=== PATIENT | female | born 1970 | race Caucasian/White ===

== ENCOUNTER 2017-02-18 12:57 | Inpatient (IN) | payer OTHER ==
[2017-02-18 13:48] VITALS: BMI 25.4
--- NOTE | 2017-02-18 15:34 | HP ---
CIWA Score - CIWA Score Nausea/Vomitin Muscle Tremors: 3 Anxiety: 3 Agitation: 3 Paroxysmal Sweats: 2 Orientation: 0-Oriented Tacttile Disturbances: 2-Mild Itch/Numbness/Burn Auditory Disturbances: 2-Mild Harshness/Frighten Visual Disturbances: 0-None Headache: 2-Mild CIWA-Ar Total Score: 20 Admission ROS BHS - HPI Chief Complaint: I NEED HELP TO STOP DRINKING ALCOHOL AND COCAINE DEPENDENCE,SEEKING DETOX,LAST TREATMENT IN 2005 [facility] HIV SINCE 1984 ON MED BIPOLAR DISORDER AND MANIC DEPRESSION NICOTINE DEPENDENCE MMTP 30 MGS PO DAILY LAST MEDICATED TODAY Allergies/Adverse Reactions: Allergies Allergy/AdvReac Type Severity Reaction Status Date / Time No Known Allergies Allergy Verified 02/18/17 15:19 History of Present Illness: THIS 46 YEARS OLD FEMALE WITH ALCOHOL,COCAINE,MARIJUANA DEPENDENCE,SEEKING DETOX MENTIONED ABOVE WEIGHT LOSS. HEPATITIS C TREATED,IN 2016,ASTHMA,WEIGHT LOSS BIPOLAR DISORDER ,NICOTINE DEPENDENCE LONGEST PERIOD OF SOBRIETY 15 YEARS - Ebola screening Have you traveled outside of the country in the last 21 days: No Have you been sick,other than usual withdrawal symptoms: No - Review of Systems Constitutional: Loss of Appetite, Malaise, Night Sweats, Changes in sleep, Weakness, Unintentional Wgt. Loss EENT: reports: Tearing, Nose Congestion Respiratory: reports: Other (ASTHMA) Cardiac: reports: No Symptoms Reported GI: reports: Diarrhea, Nausea, Vomiting, Abdominal cramping : reports: No Symptoms Reported Musculoskeletal: reports: Back Pain, Muscle Pain Integumentary: reports: Dryness Endocrine: reports: No Symptoms Reported Hematology: reports: No Symptoms Reported, Other (HIV) Psychiatric: reports: No Sypmtoms Reported, Judgement Intact, Mood/Affect Appropiate, Orientated x3, other (BIPOLAR DISORDER DEPRESSION) Patient History - Patient Medical History Hx Anemia: No Hx Asthma: Yes (ON ALBUTEROL INHALER) Hx Chronic Obstructive Pulmonary Disease (COPD): No Hx Cancer: No Hx Cardiac Disorders: No Hx Congestive Heart Failure: No Hx Hypertension: No Hx Hypercholesterolemia: No Hx Pacemaker: No HX Cerebrovascular Accident: No Hx Seizures: No Hx Dementia: No Hx Diabetes: No Hx Gastrointestinal Disorders: No Hx Liver Disease: Yes (HEPATITIS C) Hx Genitourinary Disorders: No Hx Sexually Transmitted Disorders: No Hx Renal Disease (ESRD): No Hx Thyroid Disease: No Hx Human Immunodeficiency Virus (HIV): Yes (SINCE 1984) Hx Hepatitis C: Yes (TREATED WITH HARVONI IN 2016) Hx Depression: Yes Hx Suicide Attempt: No Hx Bipolar Disorder: Yes Hx Schizophrenia: No Other Medical History: NO SUICIDAL,NO HOMICIDAL - Patient Surgical History Past Surgical History: Yes Hx Orthopedic Surgery: Yes (RIGHT FOOT AT AGE OF 13) - PPD History Previous Implant?: Yes Documented Results: Negative w/proof Implanted On Prior [facility] Admission?: No PPD to be Administered?: Yes - Reproductive History Patient : No - Smoking Cessation Smoking history: Current every day smoker Have you smoked in the past 12 months: Yes Aproximately how many cigarettes per day: 5 Cigars Per Day: 0 Hx Chewing Tobacco Use: No Initiated information on smoking cessation: Yes 'Breaking Loose' booklet given: 02/18/17 - Substance & Tx. History Hx Alcohol Use: Yes Hx Substance Use: Yes Substance Use Type: Alcohol, Cocaine, Marijuana Hx Substance Use Treatment: Yes (LAST TREATMENT 2006) - Substances Abused Alcohol Route: Oral Frequency: Daily Amount used: 1 pint of vodka or giles Age of first use: 10 Date of Last Use: 02/18/17 Cocaine Route: Smoking Frequency: 1-3 times last 30 days Amount used: $100 Age of first use: 13 Date of Last Use: 02/15/17 Marijuana/Hashish Route: Smoking Frequency: Daily Amount used: $5-10 Age of first use: 12 Date of Last Use: 02/17/17 Family Disease History - Family Disease History Family History: Denies Admission Physical Exam [facility] - Vital Signs Vital Signs: Vital Signs - 24 hr 02/18/17 13:44 Temperature 97.6 F Pulse Rate 65 Respiratory 18 Rate Blood Pressure 108/69 - Physical General Appearance: Yes: Moderate Distress, Tremorous, Irritable, Sweating, Anxious HEENTM: Yes: Normal ENT Inspection, CHIN, Pharynx Normal Respiratory: Yes: Lungs Clear, Normal Breath Sounds, No Respiratory Distress Neck: Yes: Within Normal Limits, Supple, Trachea in good position Breast: Yes: Breast Exam Deferred Cardiology: Yes: Within Normal Limits, Regular Rhythm, Regular Rate, S1, S2 Abdominal: Yes: Within Normal Limits, Normal Bowel Sounds, Non Tender, Flat, Soft Genitourinary: Yes: Within Normal Limits Back: Yes: Muscle Spasm Extremities: Yes: Within Normal Limits, Normal Range of Motion, Tremors Neurological: Yes: mime artist II-XII NML intact, Fully Oriented, Alert, Motor Strength 5/5 Integumentary: Yes: Dry Lymphatic: Yes: Within Normal Limits - Diagnostic (1) Alcohol dependence with uncomplicated withdrawal Current Visit: Yes Status: Acute (2) Cocaine dependence with intoxication, uncomplicated Current Visit: Yes Status: Acute (3) Cannabis dependence Current Visit: Yes Status: Acute (4) HIV (human immunodeficiency virus infection) Current Visit: Yes Status: Acute (5) Weight loss Current Visit: Yes Status: Acute (6) Nicotine dependence Current Visit: Yes Status: Acute (7) Methadone maintenance therapy patient Current Visit: Yes Status: Acute (8) Hepatitis C Current Visit: Yes Status: Acute (9) Bipolar disorder Current Visit: Yes Status: Acute (10) S/P foot surgery, right Current Visit: Yes Status: Acute Cleared for Admission [facility] - Detox or Rehab [facility] Level of Care: Medically Managed Detox Regimen/Protocol: Librium [facility] Breath Alcohol Content Breath Alcohol Content: 0.065 Urine Pregancy Test - Result Urine Test Results: Negative- NO Line Present Urine Drug Screen - Results Drug Screen Negative: No Urine Drug Screen Results: THC-Marijuana, JAVI-Cocaine, OPI-Opiates, MTD- Methadone
[2017-02-18] MEDS ORDERED: MAGNESIUM HYDROX 2400MG/30ML ORAL SUSPENSION 30 ML CUP PO PRN (15:58)
[2017-02-18] MEDS ORDERED: IBUPROFEN 400 MG TABLET (FP) PO PRN (15:58)
[2017-02-18] MEDS ORDERED: chlordiazePOXIDE HCL 25 MG CAPSULE PO PRN (15:58)
[2017-02-18] MEDS ORDERED: ACETAMINOPHEN 325 MG TABLET (FP) PO PRN (15:58)
[2017-02-18] MEDS ORDERED: MENTHOL/PHENOL 1 EACH UD MM PRN (15:58)
[2017-02-18] MEDS ORDERED: MAGNESIUM CITRATE 300 ML BOTTLE PO PRN (15:58)
[2017-02-18] MEDS ORDERED: P-EPHED 60MG/TRIPROLIDI 2.5MG TABLET PO PRN (15:58)
[2017-02-18] MEDS ORDERED: hydrOXYzine PAMOATE 25 MG CAPSULE (FP) PO PRN (15:58)
[2017-02-18] MEDS ORDERED: guaiFENesin/D-METHORPHAN HB 10 ML UNIT-DOSE CUPS PO PRN (15:58)
[2017-02-18] MEDS ORDERED: MAG HYDROX/AL HYDROX/SIMETH 30 ML UNIT-DOSE CUP PO PRN (15:58)
[2017-02-18] MEDS ORDERED: ALBUTEROL SO4 18 GM HFA INHALER IH PRN (16:01)
[2017-02-18] MEDS ORDERED: chlordiazePOXIDE HCL 25 MG CAPSULE PO ONE (17:30)
[2017-02-18] MEDS: NICOTINE 14 MG/24 HOURS TOPICAL PATCH TD SCH (18:03)
[2017-02-18] MEDS: chlordiazePOXIDE HCL 25 MG CAPSULE PO SCH (22:27)
[2017-02-18] MEDS: THIAMINE HCL 100 MG TABLET (FP) PO SCH (22:27)
[2017-02-18 23:06] LABS: URINE APPEARANCE CLOUDY; URINE BILIRUBIN NEGATIVE (NEGATIVE); URINE BLOOD NEGATIVE (NEGATIVE); URINE COLOR DKYELLOW; URINE GLUCOSE (UA) NEGATIVE (NEGATIVE); URINE KETONE NEGATIVE (NEGATIVE); URINE NITRITE NEGATIVE (NEGATIVE); URINE PROTEIN NEGATIVE (NEGATIVE); URINE UROBILINOGEN NEGATIVE mg/dL (0.2-1.0)
[2017-02-19] MEDS: chlordiazePOXIDE HCL 25 MG CAPSULE PO SCH ×4 (05:24→22:23)
[2017-02-19] MEDS ORDERED: METHADONE HCL 10 MG TABLET (FOR DETOX USE ONLY) PO SCH (10:00)
[2017-02-19] MEDS ORDERED: [UNRECOGNIZED DRUG - OTHER] PO SCH (10:00)
[2017-02-19 10:08] LABS: MCH 30.2 pg (25.7-33.7); MCHC 33.6 g/dl (32.0-36.0); MEAN CELL VOLUME 89.9 fl (80-96); MEAN PLT VOLUME 8.1 fl (7.5-11.1); PLATELET COUNT 174 K/MM3 (134-434); RDW 14.8 % (11.6-15.6); WHITE BLOOD COUNT 4.3 K/mm3 (4.0-10.0)
[2017-02-19] MEDS ORDERED: METHADONE HCL 10 MG TABLET PO SCH (10:24)
[2017-02-19] MEDS: METHADONE HCL 10 MG TABLET PO SCH (10:42)
[2017-02-19] MEDS: PRENATAL VITAMINS W/ FOLIC ACID TABLET (FP) PO SCH (10:43)
[2017-02-19 10:49] LABS: SICKLE CELL SCREEN NEGATIVE (NEGATIVE)
[2017-02-19 11:12] LABS: ANION GAP 7 (8-16); BILIRUBIN,TOTAL 0.7 mg/dL (0.2-1.0); CO2 26 mmol/L (21-32); CREATININE 0.9 mg/dL (0.55-1.02); GLUCOSE,RANDOM 85 mg/dL (74-106); SGOT/AST 34 U/L (15-37); SGPT/ALT 33 U/L (12-78); TOT PROT 7.9 g/dl (6.4-8.2)
[2017-02-19 11:13] LABS: ALK PHOS 88 U/L (45-117)
[2017-02-19] MEDS: NICOTINE 14 MG/24 HOURS TOPICAL PATCH TD SCH (11:46)
[2017-02-19] MEDS ORDERED: BACITRACIN 15 GM TUBE TOPICAL OINTMENT TP SCH (12:15)
--- NOTE | 2017-02-19 13:16 | CONSULT ---
[facility] Psychiatric Consult - Data Date of interview: 02/19/17 Admission source: [facility] Identifying data: First admission to [facility] for this 46 y/o AA female seeking detox treatment on for alcohol,cocaine,marihuana and opioid dependence.Patient is single,mother of two,domiciled,unemployed and supported on SSI benefits. Substance Abuse History: Patient admits to active use of alcohol,marihuana, cocaine and she is on methadone maintenance (30 mg/day).See [facility] report for details. Smoking history: Current every day smoker. Have you smoked in the past 12 months: Yes. Aproximately how many cigarettes per day: 5. Cigars Per Day: 0. Hx Chewing Tobacco Use: No. Initiated information on smoking cessation : Yes. 'Breaking Loose' booklet given: 02/18/17. - Substance & Tx. History. Hx Alcohol Use: Yes. Hx Substance Use: Yes. Substance Use Type: Alcohol, Cocaine, Marijuana. Hx Substance Use Treatment: Yes (LAST TREATMENT 2006). - Substances Abused. Alcohol. Route: Oral. Frequency: Daily. Amount used: 1 pint of vodka or giles. Age of first use: 10. Date of Last Use : 02/18/17. Cocaine. Route: Smoking. Frequency: 1-3 times last 30 days. Amount used: $100. Age of first use: 13. Date of Last Use: 02/15/17. Marijuana/Hashish. Route: Smoking. Frequency: Daily. Amount used: $5-10. Age of first use: 12. Date of Last Use: 02/17/17 Medical History: Bronchial asthma,hepatitis C and HIV infection since 1984. Psychiatric History: Patient admits to a remote history of psychiatric hospitalizations.Diagnosed with Bipolar Disorder and followed by Dr Ventura ( prescribed latuda 20 mg/hs as per self-report),at [facility]Ms Foreman denies history of suicide attempts. Physical/Sexual Abuse/Trauma History: Patient denies history of abuse. Additional Comment: Urine Drug Screen Results: THC-Marijuana, JAVI-Cocaine, OPI- Opiates, MTD-Methadone.Noted. Mental Status Exam - Mental Status Exam Alert and Oriented to: Time, Place, Person Cognitive Function: Good Patient Appearance: Well Groomed Mood: Hopeful, Euthymic Affect: Appropriate, Normal Range Patient Behavior: Appropriate, Cooperative Speech Pattern: Clear, Appropriate Voice Loudness: Normal Thought Process: Intact, Goal Oriented Thought Disorder: Not Present Hallucinations: Denies Suicidal Ideation: Denies Homicidal Ideation: Denies Insight/Judgement: Poor Sleep: Fair Appetite: Good Muscle strength/Tone: Normal Gait/Station: Normal Psychiatric Findings - Problem List ([place] 1, 2,3) (1) Alcohol dependence with uncomplicated withdrawal Current Visit: Yes Status: Chronic (2) Opioid dependence on agonist therapy Current Visit: Yes Status: Acute (3) Cannabis dependence Current Visit: Yes Status: Chronic (4) Cocaine dependence with intoxication, uncomplicated Current Visit: Yes Status: Chronic (5) Nicotine dependence Current Visit: Yes Status: Acute (6) Bipolar disorder Current Visit: Yes Status: Chronic Comment: Reported by patient.On medications. - Initial Treatment Plan Initial Treatment Plan: Psychoeducation.Detoxification.Latuda 20 mg po hs.Ordered.Side effects/benefits ar discussed with the patient.She agrees with careplan.Observation.Pharmacy claims revisited : refill for latuda 40 mg tab # [id number] days issued on 02/08/17.NO scripts required at discharge from [facility].
--- NOTE | 2017-02-19 14:19 | PN ---
S CIWA - CIWA Score Nausea/Vomitin Muscle Tremors: 3 Anxiety: 3 Agitation: 3 Paroxysmal Sweats: 1-Minimal Palms Moist Orientation: 0-Oriented Tacttile Disturbances: 1-Very Mild Itch/Numbness Auditory Disturbances: 1-Very Mild Visual Disturbances: 0-None Headache: 2-Mild CIWA-Ar Total Score: 17 BHS Progress Note (SOAP) Subjective: alert,irritable,anxious,interrupted sleep,tremor,pain in the body and back Objective: 02/19/17 14:17 Vital Signs Temperature 98.2 F 02/19/17 11:25 Pulse Rate 81 02/19/17 11:25 Respiratory Rate 18 02/19/17 11:25 Blood Pressure 109/81 02/19/17 11:25 O2 Sat by Pulse Oximetry (%) ekg nsr 02/19/17 14:17 Laboratory Last Values WBC 4.3 K/mm3 (4.0-10.0) 02/19/17 07:40 RBC 4.68 M/mm3 (3.60-5.2) 02/19/17 07:40 Hgb 14.1 GM/dL (10.7-15.3) 02/19/17 07:40 Hct 42.1 % (32.4-45.2) 02/19/17 07:40 MCV 89.9 fl (80-96) 02/19/17 07:40 MCH 30.2 pg (25.7-33.7) 02/19/17 07:40 MCHC 33.6 g/dl (32.0-36.0) 02/19/17 07:40 RDW 14.8 % (11.6-15.6) 02/19/17 07:40 Plt Count 174 K/MM3 (134-434) 02/19/17 07:40 MPV 8.1 fl (7.5-11.1) 02/19/17 07:40 Sickle Cell Screen Negative (NEGATIVE) 02/19/17 07:40 Sodium 137 mmol/L (136-145) 02/19/17 07:40 Potassium 4.0 mmol/L (3.5-5.1) 02/19/17 07:40 Chloride 104 mmol/L (98-107) 02/19/17 07:40 Carbon Dioxide 26 mmol/L (21-32) 02/19/17 07:40 Anion Gap 7 (8-16) L 02/19/17 07:40 BUN 15 mg/dL (7-18) 02/19/17 07:40 Creatinine 0.9 mg/dL (0.55-1.02) 02/19/17 07:40 Creat Clearance w eGFR > 60 (>60) 02/19/17 07:40 Random Glucose 85 mg/dL (74-106) 02/19/17 07:40 Calcium 8.0 mg/dL (8.5-10.1) L 02/19/17 07:40 Total Bilirubin 0.7 mg/dL (0.2-1.0) 02/19/17 07:40 AST 34 U/L (15-37) 02/19/17 07:40 ALT 33 U/L (12-78) 02/19/17 07:40 Alkaline Phosphatase 88 U/L (45-117) 02/19/17 07:40 Total Protein 7.9 g/dl (6.4-8.2) 02/19/17 07:40 Albumin 3.0 g/dl (3.4-5.0) L 02/19/17 07:40 Urine Color Dkyellow 02/18/17 22:50 Urine Appearance Cloudy 02/18/17 22:50 Urine pH 5.0 (5.0-8.0) 02/18/17 22:[address] [place] 1.023 (1.001-1.035) 02/18/17 22:50 Urine Protein Negative (NEGATIVE) 02/18/17 22:50 Urine Glucose (UA) Negative (NEGATIVE) 02/18/17 22:50 Urine Ketones Negative (NEGATIVE) 02/18/17 22:50 Urine Blood Negative (NEGATIVE) 02/18/17 22:50 Urine Nitrite Negative (NEGATIVE) 02/18/17 22:50 Urine Bilirubin Negative (NEGATIVE) 02/18/17 22:50 Urine Urobilinogen Negative mg/dL (0.2-1.0) 02/18/17 22:50 RPR Titer Nonreactive (NONREACTIVE) 02/19/17 07:40 Assessment: 02/19/17 14:18 withdrawal symptom Plan: continue detox
[2017-02-19 14:34] LABS: URINE LEUK ESTERASE Negative (NEGATIVE)
--- NOTE | 2017-02-19 16:37 | EKG ---
Test Reason : Blood Pressure : / mmHG Vent. Rate : 071 BPM Atrial Rate : 071 BPM P-R Int : 134 ms QRS Dur : 074 ms QT Int : 386 ms P-R-T Axes : 053 034 049 degrees QTc Int : 419 ms NORMAL SINUS RHYTHM NORMAL ECG NO PREVIOUS ECGS AVAILABLE Confirmed by CARLOS RENEE MD ([id number]) on 02/19/2017 4:37:00 PM Referred By: Confirmed By:CARLOS RENEE MD
[2017-02-19] MEDS: [UNRECOGNIZED DRUG - OTHER] PO SCH (22:22)
[2017-02-19] MEDS: BACITRACIN 0.9 GM PACKET TP SCH (22:22)
[2017-02-19] MEDS: THIAMINE HCL 100 MG TABLET (FP) PO SCH (22:23)
[2017-02-19] MEDS: LURASIDONE HCL 20 MG TABLET PO SCH (22:23)
[2017-02-20] MEDS: METHADONE HCL 10 MG TABLET PO SCH (05:44)
[2017-02-20] MEDS: chlordiazePOXIDE HCL 25 MG CAPSULE PO SCH ×3 (05:44→18:00)
[2017-02-20] MEDS: PRENATAL VITAMINS W/ FOLIC ACID TABLET (FP) PO SCH (10:24)
[2017-02-20] MEDS: BACITRACIN 0.9 GM PACKET TP SCH ×2 (10:24→22:18)
[2017-02-20] MEDS: NICOTINE 14 MG/24 HOURS TOPICAL PATCH TD SCH (10:25)
--- NOTE | 2017-02-20 10:55 | PN ---
S CIWA - CIWA Score Nausea/Vomitin Muscle Tremors: 3 Anxiety: 3 Agitation: 2 Paroxysmal Sweats: 1-Minimal Palms Moist Orientation: 0-Oriented Tacttile Disturbances: 1-Very Mild Itch/Numbness Auditory Disturbances: 1-Very Mild Visual Disturbances: 0-None Headache: 2-Mild CIWA-Ar Total Score: 16 BHS Progress Note (SOAP) Subjective: alert,irritable,anxious,interrupted sleep,tremor Objective: 02/20/17 10:53 Vital Signs Temperature 98.4 F 02/20/17 10:47 Pulse Rate 82 02/20/17 10:47 Respiratory Rate 18 02/20/17 10:47 Blood Pressure 92/68 02/20/17 10:47 O2 Sat by Pulse Oximetry (%) Laboratory Last Values WBC 4.3 K/mm3 (4.0-10.0) 02/19/17 07:40 RBC 4.68 M/mm3 (3.60-5.2) 02/19/17 07:40 Hgb 14.1 GM/dL (10.7-15.3) 02/19/17 07:40 Hct 42.1 % (32.4-45.2) 02/19/17 07:40 MCV 89.9 fl (80-96) 02/19/17 07:40 MCH 30.2 pg (25.7-33.7) 02/19/17 07:40 MCHC 33.6 g/dl (32.0-36.0) 02/19/17 07:40 RDW 14.8 % (11.6-15.6) 02/19/17 07:40 Plt Count 174 K/MM3 (134-434) 02/19/17 07:40 MPV 8.1 fl (7.5-11.1) 02/19/17 07:40 Sickle Cell Screen Negative (NEGATIVE) 02/19/17 07:40 Sodium 137 mmol/L (136-145) 02/19/17 07:40 Potassium 4.0 mmol/L (3.5-5.1) 02/19/17 07:40 Chloride 104 mmol/L (98-107) 02/19/17 07:40 Carbon Dioxide 26 mmol/L (21-32) 02/19/17 07:40 Anion Gap 7 (8-16) L 02/19/17 07:40 BUN 15 mg/dL (7-18) 02/19/17 07:40 Creatinine 0.9 mg/dL (0.55-1.02) 02/19/17 07:40 Creat Clearance w eGFR > 60 (>60) 02/19/17 07:40 Random Glucose 85 mg/dL (74-106) 02/19/17 07:40 Calcium 8.0 mg/dL (8.5-10.1) L 02/19/17 07:40 Total Bilirubin 0.7 mg/dL (0.2-1.0) 02/19/17 07:40 AST 34 U/L (15-37) 02/19/17 07:40 ALT 33 U/L (12-78) 02/19/17 07:40 Alkaline Phosphatase 88 U/L (45-117) 02/19/17 07:40 Total Protein 7.9 g/dl (6.4-8.2) 02/19/17 07:40 Albumin 3.0 g/dl (3.4-5.0) L 02/19/17 07:40 Urine Color Dkyellow 02/18/17 22:50 Urine Appearance Cloudy 02/18/17 22:50 Urine pH 5.0 (5.0-8.0) 02/18/17 22:50 Ur Specific [place] 1.023 (1.001-1.035) 02/18/17 22:50 Urine Protein Negative (NEGATIVE) 02/18/17 22:50 Urine Glucose (UA) Negative (NEGATIVE) 02/18/17 22:50 Urine Ketones Negative (NEGATIVE) 02/18/17 22:50 Urine Blood Negative (NEGATIVE) 02/18/17 22:50 Urine Nitrite Negative (NEGATIVE) 02/18/17 22:50 Urine Bilirubin Negative (NEGATIVE) 02/18/17 22:50 Urine Urobilinogen Negative mg/dL (0.2-1.0) 02/18/17 22:50 Ur Leukocyte Esterase Negative (NEGATIVE) 02/18/17 22:50 RPR Titer Nonreactive (NONREACTIVE) 02/19/17 07:40 Assessment: 02/20/17 10:54 withdrawal symptom Plan: continue detox
[2017-02-20] MEDS: chlordiazePOXIDE 5 MG CAPSULE PO SCH (22:18)
[2017-02-20] MEDS: THIAMINE HCL 100 MG TABLET (FP) PO SCH (22:18)
[2017-02-20] MEDS: LURASIDONE HCL 20 MG TABLET PO SCH (22:19)
[2017-02-20] MEDS: [UNRECOGNIZED DRUG - OTHER] PO SCH (22:20)
[2017-02-21] MEDS: METHADONE HCL 10 MG TABLET PO SCH (05:50)
[2017-02-21] MEDS: chlordiazePOXIDE 5 MG CAPSULE PO SCH ×3 (05:50→17:27)
[2017-02-21] MEDS: PRENATAL VITAMINS W/ FOLIC ACID TABLET (FP) PO SCH (10:20)
[2017-02-21] MEDS: NICOTINE 14 MG/24 HOURS TOPICAL PATCH TD SCH (10:20)
[2017-02-21] MEDS: BACITRACIN 0.9 GM PACKET TP SCH ×2 (10:22→22:05)
--- NOTE | 2017-02-21 10:25 | PN ---
BHS Progress Note (SOAP) Subjective: sweats agitation Objective: 02/21/17 10:25 Vital Signs Temperature 98.4 F 02/21/17 09:45 Pulse Rate 85 02/21/17 09:45 Respiratory Rate 18 02/21/17 09:45 Blood Pressure 107/78 02/21/17 09:45 O2 Sat by Pulse Oximetry (%) aaox3 ambulating no acute distress Assessment: 02/21/17 10:25 withdrawal sx Plan: continue detox increase fluids d/c in am
[2017-02-21] MEDS: chlordiazePOXIDE HCL 10 MG CAPSULE PO SCH (22:05)
[2017-02-21] MEDS: LURASIDONE HCL 20 MG TABLET PO SCH (22:05)
[2017-02-21] MEDS: [UNRECOGNIZED DRUG - OTHER] PO SCH (22:06)
[2017-02-21] MEDS: LOPERAMIDE HCL 2 MG CAPSULE PO PRN (22:07)
[2017-02-21] MEDS: THIAMINE HCL 100 MG TABLET (FP) PO SCH (22:08)
[2017-02-22] MEDS: METHADONE HCL 10 MG TABLET PO SCH (05:33)
[2017-02-22] MEDS: chlordiazePOXIDE HCL 10 MG CAPSULE PO SCH (05:33)
[2017-02-22 06:32] VITALS: BP 108/66; PULSE 90; TEMP 98.4
[2017-02-22] MEDS: LOPERAMIDE HCL 2 MG CAPSULE PO PRN (07:14)
--- NOTE | 2017-02-22 09:02 | DS ---
[facility] Detox Discharge Summary Admission Date: 02/18/17 Discharge Date: 02/22/17 - History Present History: Alcohol Dependence, Cannabis Dependence, Cocaine Dependence, MMTP - Physical Exam Results Vital Signs: Vital Signs Temperature 98.4 F 02/22/17 06:00 Pulse Rate 90 02/22/17 06:00 Respiratory Rate 18 02/22/17 06:00 Blood Pressure 108/66 02/22/17 06:00 O2 Sat by Pulse Oximetry (%) - Treatment Hospital Course: Detox Protocol Followed, Detoxed Safely, Responded well, Discharged Condition Good, Rehab Referral Accepted - Medication Discharge Medications: Ambulatory Orders Albuterol Sulfate Inhaler - [Ventolin Hfa Inhaler -] 2 inh PO Q4H PRN 02/18/17 Elviteg/Cob/Emtri/Tenof Alafen [Genvoya (Non-Formulary)] 1 each PO DAILY Lurasidone HCl [Latuda -] 20 mg PO HS 02/18/17 - Diagnosis (1) Alcohol dependence with uncomplicated withdrawal Current Visit: Yes Status: Chronic (2) Cannabis dependence Current Visit: Yes Status: Chronic (3) Cocaine dependence with intoxication, uncomplicated Current Visit: Yes Status: Chronic (4) HIV (human immunodeficiency virus infection) Current Visit: Yes Status: Chronic (5) Hepatitis C Current Visit: Yes Status: Chronic Qualifiers: Viral hepatitis chronicity: chronic Hepatic coma status: without hepatic coma Qualified Code(s): B18.2 - Chronic viral hepatitis C (6) Methadone maintenance therapy patient Current Visit: Yes Status: Chronic (7) Nicotine dependence Current Visit: Yes Status: Chronic Qualifiers: Nicotine product type: cigarettes Substance use status: uncomplicated Qualified Code(s): F17.210 - Nicotine dependence, cigarettes, uncomplicated (8) Opioid dependence on agonist therapy Current Visit: Yes Status: Acute (9) S/P foot surgery, right Current Visit: Yes Status: Acute (10) Weight loss Current Visit: Yes Status: Acute (11) Bipolar disorder Current Visit: Yes Status: Chronic - AMA Did Patient Leave Against Medical Advice: No
[2017-02-22] MEDS: NICOTINE 14 MG/24 HOURS TOPICAL PATCH TD SCH (09:10)
[2017-02-22] MEDS: BACITRACIN 0.9 GM PACKET TP SCH (09:11)
[2017-02-22] MEDS: PRENATAL VITAMINS W/ FOLIC ACID TABLET (FP) PO SCH (09:11)
== END 2017-02-22 09:45 | disposition home or self-care (01) | DRG 773 ==
LOC: YASAS 12:57 → Y6N 17:16
PROVIDERS: ADMIT Internal Medicine; ATTEND Internal Medicine
PROC: HZ2ZZZZ Detoxification Services for Substance Abuse Treatment (ICD-10-PCS; principal; 2017-02-18)
DX: F11.20 Opioid dependence, uncomplicated (principal); F10.230 Alcohol dependence with withdrawal, uncomplicated; F14.20 Cocaine dependence, uncomplicated; F12.20 Cannabis dependence, uncomplicated; F17.210 Nicotine dependence, cigarettes, uncomplicated; F31.9 Bipolar disorder, unspecified; Z21 Asymptomatic human immunodeficiency virus [HIV] infection status; B18.2 Chronic viral hepatitis C; R63.4 Abnormal weight loss; Z68.25 Body mass index [BMI] 25.0-25.9, adult
CPT/HCPCS: 36415; 80053; 81003; 85027; 85660; 86593; 93005; 93010